=== PATIENT | male | born 1955 | race Caucasian/White ===

== ENCOUNTER → 2017-06-02 08:02 | Outpatient (CLI) | payer MEDICAID ==
[2015-09-05 07:46] VITALS: BMI 35.0
[~2017-06-02 08:02] MED LIST: BAYER CHEWABLE81 MG PO; FISH OIL 1,2001 CAP PO; GLUCOPHAGE1000 MG PO; LANTUS INSULIN10 ML SC; LISINOPRIL5 MG PO; PERCOCET 10/3251 TA1 PO; PRAVACHOL40 MG PO; SYNTHROID50 MCG PO
== END | disposition home or self-care (01) ==
LOC: D.CT 08:02
DX: R10.84 Generalized abdominal pain (principal)